=== PATIENT | female | born 1950 | race Caucasian/White ===

== ENCOUNTER 2022-03-26 09:35 | Outpatient (REF) | payer MEDICARE, SELFPAY ==
[2022-03-26 11:33] LABS: Hematocrit 38.8 % (37.0-47.0); Mean Corpuscular HGB Conc 33.5 g/dl (31.0-35.0); Mean Corpuscular Hemoglobin 30.7 pg (27.0-33.0); Mean Corpuscular Volume 91.7 fL (80.0-98.0); Mean Platelet Volume 9.6 fL (9.4-12.3); Platelet Count 388 X10*3/uL (160-400); Red Blood Count 4.23 X10*6/uL (4.20-5.50); Red Cell Distribution Width 13.2 % (11.0-16.0); White Blood Count 5.7 X10*3/uL (4.8-10.8)
[2022-03-26 11:56] LABS: Alanine Aminotransferase 15 U/L (0-31); Alkaline Phosphatase 87 U/L (39-117); Anion Gap 13 (12-20); Aspartate Amino Transferase 20 U/L (5-31); Bilirubin Total 0.8 mg/dL (0.0-1.0); Blood Urea Nitrogen 20 mg/dL (9-16); Calcium 9.8 mg/dL (8.4-10.2); Carbon Dioxide 28 mmol/L (22-29); Chloride 104 mmol/L (96-108); Cholesterol 222 mg/dL; Estimated Glomerular Filt Rate > 60; Glucose Fasting 108 mg/dL (60-99); HDL Cholesterol 64 mg/dL; LDL Cholesterol Calculated 146 mg/dl; Sodium 141 mmol/L (135-145); Total Protein 7.1 g/dL (6.5-8.0); Triglycerides 62 mg/dL
[2022-03-26 12:07] LABS: TSH reflex Free T4 1.12 uIU/mL (0.32-4.0)
== END 2022-03-26 09:36 | disposition home or self-care (01) ==
LOC: HO.WFDLDS 09:35
PROVIDERS: Visit Provider Hospitalist
DX: Z00.00 Encounter for general adult medical examination without abnormal findings (principal); I10 Essential (primary) hypertension
CPT/HCPCS: 36415; 80053; 80061; 84443; 85027

== ENCOUNTER 2022-04-10 08:52 | Outpatient (REF) | payer MEDICARE, SELFPAY ==
[2022-04-10 11:48] LABS: Hematocrit 39.8 % (37.0-47.0); Hemoglobin 13.1 g/dl (12.0-16.0); Mean Corpuscular HGB Conc 32.9 g/dl (31.0-35.0); Mean Corpuscular Volume 91.3 fL (80.0-98.0); Mean Platelet Volume 9.9 fL (9.4-12.3); Platelet Count 382 X10*3/uL (160-400); Red Blood Count 4.36 X10*6/uL (4.20-5.50); Red Cell Distribution Width 13.2 % (11.0-16.0); White Blood Count 5.3 X10*3/uL (4.8-10.8)
[2022-04-10 12:05] LABS: Alanine Aminotransferase 17 U/L (0-31); Albumin Level 4.1 g/dL (3.5-5.0); Alkaline Phosphatase 71 U/L (39-117); Anion Gap 12 (12-20); Aspartate Amino Transferase 23 U/L (5-31); Bilirubin Total 0.7 mg/dL (0.0-1.0); Blood Urea Nitrogen 23 mg/dL (9-16); Calcium 9.5 mg/dL (8.4-10.2); Carbon Dioxide 30 mmol/L (22-29); Chloride 104 mmol/L (96-108); Estimated Glomerular Filt Rate > 60; Glucose Fasting 98 mg/dL (60-99); Potassium 3.8 mmol/L (3.3-5.1); Sodium 142 mmol/L (135-145); Total Protein 7.2 g/dL (6.5-8.0)
[2022-04-10 12:20] LABS: TSH reflex Free T4 1.07 uIU/mL (0.32-4.0)
== END 2022-04-10 08:53 | disposition home or self-care (01) ==
LOC: HO.WFDLDS 08:52
PROVIDERS: Visit Provider Hospitalist
DX: Z00.00 Encounter for general adult medical examination without abnormal findings (principal)
CPT/HCPCS: 36415; 80053; 84443; 85027

== ENCOUNTER 2022-09-09 14:17 | Outpatient (REF) | payer MEDICARE, SELFPAY ==
[2022-09-09 15:06] LABS: Influenza A PCR NEGATIVE (Negative); Influenza B PCR NEGATIVE (Negative); Resp Syncy Virus RNA Qual PCR NEGATIVE (Negative); SARS COV2 PCR INHOUSE POSITIVE (Negative)
== END 2022-09-09 14:18 | disposition home or self-care (01) ==
LOC: HO.LNP 14:17
PROVIDERS: Visit Provider Nurse Practitioner Family
DX: Z20.822 Contact with and (suspected) exposure to COVID-19 (principal); J06.9 Acute upper respiratory infection, unspecified
CPT/HCPCS: 0241U

== ENCOUNTER 2023-10-22 08:41 | Outpatient (AMB) | payer MEDICARE, SELFPAY ==
--- NOTE | 2023-10-22 08:43 | A.OFFPC_ITS ---
Vital Signs 10/22/23 08:47 Height 5 ft Weight 171 lb 6 oz BMI 33.5 BP 160/70 H Blood Pressure Location Lt brachial Position Sitting Pulse 96 Pulse Source Pulse Oximeter Pulse Oximetry (%) 97 Oxygen Delivery Method Room Air Intake Visit Reasons: follow up med refill Intake Note: Patient is here to follow up on HTN, and med review. Fisher Dip Net Required: No Ballpoint Pen Cartridge Tester: Not Required per policy Accompanied by: Self / Same As Patient Allergies No Known Allergies Allergy (Verified 10/22/23 09:09) Medication List - Last Reconciled 10/22/23 by Iona Zamarripa, [employer]CHO[employer] MUSIC TEACHER- aspirin 325 mg PO DAILY atorvastatin 20 mg PO BEDTIME blood pressure monitor As directed lisinopril 2.5 mg PO DAILY lisinopril 5 mg PO DAILY sennosides (senna) 17.2 mg (2 x 8.6 mg) PO BEDTIME Tobacco use date assessed: 10/22/23 Fall risk assessment: No Falls in past year Last assessed Fall Risk: 10/22/23 Dental Screening Dental Screen Date: 10/22/23 Did you have a dental visit in the last 12 months?: Yes Did you have a dental problem in the last 6 months where you did not have access to dental care?: No Was dental information given to patient?: Patient has dentist HPI HPI Comments History of Present Illness Details Here today for f/u of HLD and HTN. Has been taking meds as directed. Due for labs. Last labs reviewed. Monitors BP at [facility] as she is not sure if home monitoring unit works. Several AM readings < 90 Denies any sx related to this. Edema in BLE, worse at HS. Cut bands off socks to reduce edema. Denies neuro and cardiac complaints. [facility] Surgical History (Updated 10/22/23 @ 09:00 by KASIE Mckeon) History of appendectomy History of laparoscopic cholecystectomy History of wisdom tooth extraction Social History (Updated 10/22/23 @ 09:00 by KASIE Mckeon) Housing: House Alcohol intake: current Alcohol intake frequency: holidays/special occasions only Patient Tobacco Use Status: Never used Tobacco e-Cigarette/Vaping Use: Never Used Second Hand Smoke Exposure: No service: No Current occupational status: other Current occupational exposures/hazards: No Cognitive needs: No Hearing needs: No Vision needs: Yes (glasses) Questionnaire PHQ-9 Over the last 2 weeks, how often have you been bothered by any of the following problems? 1. Little interest or pleasure in doing things: not at all 2. Feeling down, depressed, or hopeless: not at all 3. Trouble falling or staying asleep, or sleeping too much: not at all 4. Feeling tired or having little energy: not at all 5. Poor appetite or overeating: not at all 6. Feeling bad about yourself - or that you are a failure or have let yourself o r your family down: not at all 7. Trouble concentrating on things, such as reading the newspaper or watching television: not at all 8. Moving or speaking so slowly that other people could have noticed. Or the opposite - being so fidgety or restless that you have been moving around a lot more than usual: not at all 9. Thoughts that you would be better off or of hurting yourself in some way: not at all Total score: 0 Depression Screening Interpretation: Negative Depression Screening Done: Yes 64138 - PHQ-9 Billing: Yes Source: Developed by Drs. Gibran Salinas, Berta Corcoran, Abdullahi schwartz nd colleagues, with an educational edmund from [employer]. Thrive Questionnaire Date Thrive assessed: 10/22/23 I am a: Patient What is your living situation today?: I have a steady place to live Within the past 12 months, did the food you bought not last and you didn't have the money to get more?: Never true Within the past 12 months, did you worry whether your food would run out before you got money to buy more?: Never true Do you have trouble paying for medicines?: No Do you have trouble getting transportation to medical appointments?: No Do you have trouble paying your heating and electricity bill?: No Do you have trouble taking care of your child, family member or friend?: No Do you have trouble with day-to-day activities such as bathing, preparing meals, shopping, managing finances, etc.?: No Are you currently unemployed and looking for a job?: No Are you interested in more education?: No Please select the resources that you would like help with: None Currently or been in a relationship where the following occur: no concerns reported AUDIT C Alcohol Use Questionnaire (AUDIT-C) 1. How often do you have a drink containing alcohol?: Monthly or less 2. How many drinks containing alcohol do you have on a typical day when you are drinking?: 1 or 2 3. How often do you have six or more drinks on one occasion?: Never Total Score: 1 Score Reviewed/Action Taken: Yes NAIN-7 AMB Questionnaire NAIN-7 Date NAIN - 7 assessed: 10/22/23 Feeling nervous, anxious, or on edge: 0 = Not at all Not being able to stop or control worryin = Not at all Worrying too much about different things: 0 = Not at all Trouble relaxin = Not at all Being so restless that it is hard to sit still: 0 = Not at all Becoming easily annoyed or irritable: 0 = Not at all Feeling afraid as if something awful might happen: 0 = Not at all Total NAIN-7 score (0-4 normal; 5-9 mild; 10-14 moderate; 15-21 severe): 0 Source: Developed by Drs. Gibran Salinas, Berta Corcoran, Abdullahi Aragon and colleagues, with an educational edmund from [employer]. NAIN-7 Assessment Billing NAIN-7 Assessment Tool: NAIN-7 Assessment 54567 Review of Systems Const All systems reviewed & are unremarkable except as noted in HPI and below Physical exam (Primary Care) Vital Signs: Last Vital Signs Pulse 96 10/22/23 08:47 BP 160/70 H 10/22/23 08:47 Pulse Ox 97 10/22/23 08:47 Oxygen Delivery Method Room Air 10/22/23 08:47 BMI result Body Mass Index 33.5 Tobacco/Smoking Status: Tobacco use Status Tobacco use date assessed 10/22/23 10/22/23 08:47 Patient Tobacco Use Status Never used Tobacco 10/22/23 09:00 e-Cigarette/Vaping Use Never Used 10/22/23 09:00 PHQ-9: PHQ-9 Score PHQ-9: Total score 0 10/22/23 13:11 Depression Screening Interpretation: Negative Thrive Assessment: Date of Thrive Assessment Date Thrive assessed 10/22/23 10/22/23 09:01 Currently or been in a relationship where the following occur: no concerns reported Const Other: awake alert oriented nad MMM sclera & conjunctiva clear bilat LS dim BLL otherwise CTAB RRR BLE hairless, decreased PP bilat, feet cool to touch, nails thickened. Skin intact. Very trace edema bilat ankles R>L Anxious but pleasant and cooperative Assessment and Plan Assessment & Plan (1) Hyperlipidemia: Comment: on statin and ASA Code(s): E78.5 - Hyperlipidemia, unspecified Qualifiers: Hyperlipidemia type: mixed hyperlipidemia Qualified Code(s): E78.2 - Mixed hyperlipidemia Plan: check lipip profile & RTO to discuss and optimize (2) HTN, goal below 130/80: Code(s): I10 - Essential (primary) hypertension Plan: BP elevated in office, known white coat HTN. Home log reviewed w/ several readings in the AM SBP < 90 some even < 70. Denies syncope or sx. At this time, I have advised to reduce lisinopril from 7.5 mg QD to 5mg QD. Monitor BP QD at home and keep a log to review at next visit. Bring home BP cuff to next visit so we can teach you how to use it. Currently taking BP at [facility]. Check CMP & urine micro (3) PVD (peripheral vascular disease): Comment: on statin and ASA. Check Vascular studies Code(s): I73.9 - Peripheral vascular disease, unspecified (4) PAD (peripheral artery disease): Code(s): I73.9 - Peripheral vascular disease, unspecified (5) Peripheral edema: Code(s): R60.9 - Edema, unspecified Orders: Orders Lipid Panel 10/22/23 E78.5 - Hyperlipidemia, unspecified, I10 - Essential (primary) hypertension US IZA complete Today E78.5 - Hyperlipidemia, unspecified, I73.9 - Peripheral vascular disease, unspecified, R60.9 - Edema, unspecified Comprehensive [place]. Panel Fast 10/22/23 E78.5 - Hyperlipidemia, unspecified, I10 - Essential (primary) hypertension Microalbumin, Random (w Creat) 10/22/23 E78.5 - Hyperlipidemia, unspecified, I10 - Essential (primary) hypertension US arterial duplex LE BI Today E78.5 - Hyperlipidemia, unspecified, I73.9 - Peripheral vascular disease, unspecified, R60.9 - Edema, unspecified Medications: Refilled sennosides (senna) 17.2 mg (2 x 8.6 mg) PO BEDTIME 180 tabs 3RF lisinopril 5 mg PO DAILY 90 tabs 0RF I10 - Essential (primary) hypertension aspirin pt followed by ortho will continue asa just stopeed lovenox 325 mg PO DAILY 30 tabs 1RF lisinopril 2.5 mg PO DAILY 90 tabs 0RF I10 - Essential (primary) hypertension atorvastatin 20 mg PO BEDTIME 90 tabs 0RF E78.9 - Disorder of lipoprotein metabolism, unspecified Patient Instructions: [facility] Coding Level of Care Code Est Pt Level 4 (81425) Diagnoses Mixed hyperlipidemia E78.2 Hyperlipidemia type: mixed hyperlipidemia HTN, goal below 130/80 I10 PVD (peripheral vascular disease) I73.9 PAD (peripheral artery disease) I73.9 Peripheral edema R60.9 Additional Codes NAIN-7 Assessment Billing - NAIN-7 Assessment Tool: NAIN-7 Assessment [id number] ([id number])
[2023-10-22 08:47] VITALS: BP 160/70; PULSE 96; O2SAT 97; BMI 33.5
== END 2023-10-22 09:33 | disposition home or self-care (01) ==
PROVIDERS: PCP Hospitalist; Visit Provider Nurse Practitioner Family
DX: E78.2 Mixed hyperlipidemia (principal); I10 Essential (primary) hypertension; I73.9 Peripheral vascular disease, unspecified; R60.9 Edema, unspecified
CPT/HCPCS: 99214

== ENCOUNTER 2023-11-25 12:37 | Outpatient (AMB) | payer MEDICARE, SELFPAY ==
[2023-11-25 12:51] VITALS: BP 154/69; PULSE 94; RESP 13; TEMP 36.9; O2SAT 99; BMI 32.9
--- NOTE | 2023-11-25 12:51 | MHC.PC.OV ---
Vital Signs 11/25/23 12:51 Height 5 ft Weight 168 lb 8 oz BMI 32.9 BP 154/69 H Blood Pressure Location Lt brachial Position Sitting Respiration 13 Pulse 94 Pulse Source Pulse Oximeter Temp 98.4 F Temp Source Temporal Artery Scan Pulse Oximetry (%) 99 Oxygen Delivery Method Simple Mask Intake Visit Reasons: Transfer of care, f/u HTN, Lipids Labs Intake Note: Patient is here for transfer of care from to . Patient is also following up on hypertension. Patient reports she has no concerns at this time. Hardware Manager Required: No Accompanied by: Self / Same As Patient Allergies No Known Allergies Allergy (Verified 11/25/23 13:21) Medication List - Last Reconciled 11/25/23 by Iona Zamarripa, COLORECTAL SURGEON- aspirin 325 mg PO DAILY atorvastatin 20 mg PO BEDTIME blood pressure monitor As directed lisinopril 5 mg PO DAILY sennosides (senna) 17.2 mg (2 x 8.6 mg) PO BEDTIME Tobacco use date assessed: 11/25/23 Fall risk assessment: No Falls in past year Last assessed Fall Risk: 11/25/23 Dental Screening Dental Screen Date: 11/25/23 Did you have a dental visit in the last 12 months?: Yes Did you have a dental problem in the last 6 months where you did not have access to dental care?: No Was dental information given to patient?: Patient has dentist HPI HPI Comments History of Present Illness Details Here today to f/u on lipids and HTN Since last visit, has been taking BP at [facility]. Taking Lisinopril 5mg as directed (decrease from 7.5mg). Log much better. SBP range 96 - 114 DBP 45-75 P range 66-77 Was not able to get labs done as she reports need for antibiotic and dental work. Reports that the imaging was to be arranged at [facility] but she is still waiting on appointment date. [facility] Medical History (Updated 11/25/23 @ 13:02 by Jazmin Moura CMA) No pertinent past medical history Surgical History History of appendectomy History of laparoscopic cholecystectomy History of wisdom tooth extraction Social History (Updated 11/25/23 @ 13:04 by Jazmin Moura CMA) Household Members: Other Caregiver staying overnight: No Housing: House Are you a primary manager urgent care to a significant other at home: No Do you presently have visiting nurse or other home services: No 75 years or older and lives alone: No Alcohol intake: current Alcohol intake frequency: holidays/special occasions only Patient Tobacco Use Status: Never used Tobacco e-Cigarette/Vaping Use: Never Used Second Hand Smoke Exposure: No service: No Current occupational status: retired and other Current occupational exposures/hazards: No Sexual orientation: Unable to collect Gender identity: Unable to collect Cognitive needs: No Hearing needs: No Vision needs: Yes (glasses) Questionnaire PHQ-9 Over the last 2 weeks, how often have you been bothered by any of the following problems? 1. Little interest or pleasure in doing things: not at all 2. Feeling down, depressed, or hopeless: not at all 3. Trouble falling or staying asleep, or sleeping too much: not at all 4. Feeling tired or having little energy: not at all 5. Poor appetite or overeating: not at all 6. Feeling bad about yourself - or that you are a failure or have let yourself or your family down: not at all 7. Trouble concentrating on things, such as reading the newspaper or watching television: not at all 8. Moving or speaking so slowly that other people could have noticed. Or the opposite - being so fidgety or restless that you have been moving around a lot more than usual: not at all 9. Thoughts that you would be better off or of hurting yourself in some way: not at all Total score: 0 Depression Screening Interpretation: Negative Depression Screening Done: Yes 23105 - PHQ-9 Billing: Yes Source: Developed by Drs. Gibran Salinas, Berta Corcoran, Abdullahi Aragon and colleagues, with an educational edmund from [employer]. Thrive Questionnaire Date Thrive assessed: 11/25/23 I am a: Patient What is your living situation today?: I have a steady place to live Within the past 12 months, did the food you bought not last and you didn't have the money to get more?: Never true Within the past 12 months, did you worry whether your food would run out before you got money to buy more?: Never true Do you have trouble paying for medicines?: No Do you have trouble getting transportation to medical appointments?: No Do you have trouble paying your heating and electricity bill?: No Do you have trouble taking care of your child, family member or friend?: No Do you have trouble with day-to-day activities such as bathing, preparing meals, shopping, managing finances, etc.?: No Are you currently unemployed and looking for a job?: No Are you interested in more education?: No Please select the resources that you would like help with: None Currently or been in a relationship where the following occur: no concerns reported THRIVE Score: 0 AUDIT C Alcohol Use Questionnaire (AUDIT-C) 1. How often do you have a drink containing alcohol?: Monthly or less 2. How many drinks containing alcohol do you have on a typical day when you are drinking?: 1 or 2 3. How often do you have six or more drinks on one occasion?: Never Total Score: 1 NAIN-7 AMB Questionnaire NAIN-7 Date NAIN - 7 assessed: 11/25/23 Feeling nervous, anxious, or on edge: 0 = Not at all Not being able to stop or control worryin = Not at all Worrying too much about different things: 0 = Not at all Trouble relaxin = Not at all Being so restless that it is hard to sit still: 0 = Not at all Becoming easily annoyed or irritable: 0 = Not at all Feeling afraid as if something awful might happen: 0 = Not at all Total NAIN-7 score (0-4 normal; 5-9 mild; 10-14 moderate; 15-21 severe): 0 Source: Developed by Drs. Gibran Salinas, Berta Corcoran, Abdullahi Aragon and colleagues, with an educational edmund from [employer]. NAIN-7 Assessment Billing NAIN-7 Assessment Tool: NAIN-7 Assessment 41685 Review of Systems Const All systems reviewed & are unremarkable except as noted in HPI and below Physical exam (Primary Care) Vital Signs: Last Vital Signs Temp 98.4 F 11/25/23 12:51 Pulse 94 11/25/23 12:51 Resp 13 11/25/23 12:51 BP 154/69 H 11/25/23 12:51 Pulse Ox 99 11/25/23 12:51 Oxygen Delivery Method Simple Mask 11/25/23 12:51 BMI result Body Mass Index 32.9 Tobacco/Smoking Status: Tobacco use Status Tobacco use date assessed 11/25/23 11/25/23 13:04 Patient Tobacco Use Status Never used Tobacco 11/25/23 13:04 e-Cigarette/Vaping Use Never Used 11/25/23 13:04 PHQ-9: PHQ-9 Score PHQ-9: Total score 0 11/25/23 13:27 Depression Screening Interpretation: Negative Thrive Assessment: Date of Thrive Assessment Date Thrive assessed 11/25/23 11/25/23 13:06 Currently or been in a relationship where the following occur: no concerns reported Const Other: wake alert oriented nad MMM sclera & conjunctiva clear bilat LS dim BLL otherwise CTAB RRR BLE hairless, decreased PP bilat, feet cool to touch, nails thickened. Skin intact. Very trace edema bilat ankles R>L Anxious but pleasant and cooperative Assessment and Plan Assessment & Plan (1) PVD (peripheral vascular disease): Comment: on statin and ASA. Check Vascular studies Code(s): I73.9 - Peripheral vascular disease, unspecified (2) Hyperlipidemia: Comment: on statin and ASA Code(s): E78.5 - Hyperlipidemia, unspecified Qualifiers: Hyperlipidemia type: mixed hyperlipidemia Qualified Code(s): E78.2 - Mixed hyperlipidemia (3) HTN, goal below 130/80: Code(s): I10 - Essential (primary) hypertension (4) Peripheral edema: Code(s): R60.9 - Edema, unspecified Plan: Blood pressure in office today remains above goal, however her home log reviews blood pressures that are well within goal with the reduction of lisinopril from 7.5 mg to 5 mg per day. I have advised her to continue to take this as prescribed and to continue to monitor her blood pressure daily and bring logs with her to future appointments. The elevated blood pressure in the office today is due to white coat hypertension which is a known condition for her. When she gets her blood work done and her vascular studies done I have asked her to schedule an appointment so that we may review this and come up with a plan. I have advised her to return to the office in 3 months for a routine appointment in addition to the appointment needed to review her testing and labs. Total time spent caring for the patient today was 40 minutes. This includes time spent before the visit reviewing the chart, time spent during the visit, and time spent after the visit on documentation Coding Level of Care Code Est Pt Level 4 (24248) Diagnoses PVD (peripheral vascular disease) I73.9 Mixed hyperlipidemia E78.2 Hyperlipidemia type: mixed hyperlipidemia HTN, goal below 130/80 I10 Peripheral edema R60.9 Additional Codes NAIN-7 Assessment Billing - NAIN-7 Assessment Tool: NAIN-7 Assessment [id number] ([id number])
== END 2023-11-25 13:36 | disposition home or self-care (01) ==
PROVIDERS: PCP Hospitalist; Visit Provider Nurse Practitioner Family
DX: I73.9 Peripheral vascular disease, unspecified (principal); E78.2 Mixed hyperlipidemia; I10 Essential (primary) hypertension; R60.9 Edema, unspecified
CPT/HCPCS: 99214

== ENCOUNTER 2023-12-18 09:13 | Outpatient (REF) | payer MEDICARE, SELFPAY ==
--- NOTE | ~2023-12-18 | US_ITS ---
EXAMINATION: US arterial duplex LE BI, US IZA complete CLINICAL INFORMATION: Peripheral vascular disease, unspecified COMPARISON: None TECHNIQUE: Ankle pulse volume recordings, ankle pressure measurements and ankle brachial indices were obtained of the lower extremity arterial system bilaterally in addition to duplex Doppler techniques with wave form analysis and measurement of velocities in the common femoral, profunda femoral, superficial femoral, popliteal, tibial and peroneal arteries. The study was performed only at rest. FINDINGS: RIGHT LE. THE RIGHT ANKLE-BRACHIAL INDEX IS: 0.97 noncompressibility/calcification. >0.97-1.25 = normal - no significant arterial disease 0.75-0.96 = mild peripheral arterial disease 0.5-0.74 = moderate peripheral arterial disease <0.50 = severe peripheral arterial disease <0.30 = critical arterial disease 2. SEGMENTAL PRESSURES (mmHg): Ankle: PT 167, DP 159 3. PVR WAVEFORMS: Ankle: Abnormal 4. DIRECT DUPLEX: Common femoral artery: 229 cm/s, Multiphasic Profunda femoris artery: 201 cm/s, monophasic Superficial femoral artery (proximal): 152 cm/s, Multiphasic Superficial femoral artery (mid): 117 cm/s, Multiphasic Superficial femoral artery (distal): 74.8 cm/s, biphasic Proximal Popliteal artery: 100 cm/s, biphasic Distal popliteal artery: 348 cm/s, biphasic Mid posterior tibial artery: 98.8 cm/s, Multiphasic Peroneal artery: 56 cm/s, biphasic Anterior tibial artery: 23.8 cm/sec. Reversed flow LEFT LE. THE LEFT ANKLE-BRACHIAL INDEX IS: 0.85 (higher of the DP/PT) >0.97-1.25 = normal - no significant arterial disease 0.75-0.96 = mild peripheral arterial disease 0.5-0.74 = moderate peripheral arterial disease <0.50 = severe peripheral arterial disease <0.30 = critical arterial disease 2. SEGMENTAL PRESSURES: Ankle: PT 147, DP 128 3. PVR WAVEFORMS: Ankle: Abnormal 4. DIRECT DUPLEX: Common femoral artery: 118 cm/s, Multiphasic Profunda femoris artery: 127 cm/s, monophasic Superficial femoral artery (proximal): 87.4 cm/s, Multiphasic Superficial femoral artery (mid): 90 cm/s, biphasic Superficial femoral artery (distal): 88 cm/s, biphasic Proximal Popliteal artery: 86.1 cm/s, biphasic Distal popliteal artery: 93.1 cm/s, biphasic Mid posterior tibial artery: 104 cm/s, biphasic Peroneal artery: 157 cm/s, monophasic Anterior tibial artery: 14.4 cm/sec, monophasic US/US arterial duplex LE BI IMPRESSION: RIGHT LEG: IZA 0.97, borderline normal. Elevated velocity in the distal popliteal artery suggesting moderate to severe stenosis. LEFT LEG: Mild peripheral arterial disease by IZA criteria.
== END 2023-12-18 09:14 | disposition home or self-care (01) ==
LOC: HO.US 09:13
PROVIDERS: PCP Nurse Practitioner Family; Visit Provider Nurse Practitioner Family
DX: I73.9 Peripheral vascular disease, unspecified (principal); E78.5 Hyperlipidemia, unspecified; R60.9 Edema, unspecified
CPT/HCPCS: 93923; 93925

== ENCOUNTER 2023-12-25 07:45 | Outpatient (REF) | payer MEDICARE, SELFPAY ==
[2023-12-25 11:48] LABS: Alanine Aminotransferase 16 U/L (0-31); Albumin Level 4.2 g/dL (3.5-5.0); Alkaline Phosphatase 77 U/L (39-117); Anion Gap 15 (12-20); Aspartate Amino Transferase 26 U/L (5-31); Bilirubin Total 0.7 mg/dL (0.0-1.0); Blood Urea Nitrogen 25 mg/dL (9-16); Calcium 10.1 mg/dL (8.4-10.2); Carbon Dioxide 28 mmol/L (22-29); Chloride 104 mmol/L (96-108); Cholesterol 151 mg/dL (<200); Estimated Glomerular Filt Rate > 60; Glucose Fasting 110 mg/dL (60-99); HDL Cholesterol 62 mg/dL (>40); LDL Cholesterol Calculated 76 mg/dL (<100); Potassium 3.7 mmol/L (3.3-5.1); Sodium 143 mmol/L (135-145); Total Protein 7.6 g/dL (6.5-8.0); Triglycerides 65 mg/dL (<150)
[2023-12-25 12:15] LABS: Creatinine Urine 120.34 mg/dL; Microalbum/Creatinine Ratio Ur 50.6 ug/mg cr (<30)
== END 2023-12-25 07:46 | disposition home or self-care (01) ==
LOC: HO.WFDLDS 07:45
PROVIDERS: Visit Provider Nurse Practitioner Family
DX: E78.5 Hyperlipidemia, unspecified (principal); I10 Essential (primary) hypertension
CPT/HCPCS: 36415; 80053; 80061; 82043; 82570

== ENCOUNTER 2023-12-30 11:44 | Outpatient (AMB) | payer MEDICARE, SELFPAY ==
[2023-12-30 11:49] VITALS: BP 170/74; PULSE 88; RESP 13; TEMP 36.9; O2SAT 100; BMI 31.2
--- NOTE | 2023-12-30 11:49 | A.OFFPC_ITS ---
Vital Signs 12/30/23 11:49 12/30/23 13:08 Height 5 ft Weight 160 lb BMI 31.2 BP 170/74 H 138/62 Blood Pressure Location Lt brachial Lt brachial Position Sitting Sitting Respiration 13 Pulse 88 Pulse Source Pulse Oximeter Temp 98.4 F Temp Source Temporal Artery Scan Pulse Oximetry (%) 100 Oxygen Delivery Method Room Air Intake Visit Reasons: fu HTN Lipids Vascular study Intake Note: Patient reports she is following up on her recent tests. 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 by: Self / Same As Patient Allergies No Known Allergies Allergy (Verified 12/30/23 12:44) Medication List - Last Reconciled 12/30/23 by JAMA Kaur aspirin 325 mg PO DAILY atorvastatin 20 mg PO BEDTIME blood pressure monitor As directed lisinopril 5 mg PO DAILY sennosides (senna) 17.2 mg (2 x 8.6 mg) PO BEDTIME Tobacco use date assessed: 11/25/23 HPI HPI Comments History of Present Illness Details 73-year-old female with PVD, hyperlipide alexys, hypertension, osteoarthritis, IFG, cataracts Status post appendectomy, laparoscopic cholecystectomy Health maintenance Mammogram [facility] Here today to follow-up on htn, lab results as well as IZA testing done to perform edema bilateral lower extremities worse on the right. Abnormal IZA: 12/2023 RLE: IZA 0.97, borderline normal. Elevated velocity in the distal popliteal artery suggesting moderate to severe stenosis. LEFT LEG: Mild peripheral arterial disease by IZA criteria. Labs from 12/25/2023 show a BUN of 25, creatinine 0.83, normal GFR, fasting glucose of 110, normal cholesterol, positive microalbumin 50.6 Home log reviewed SBP range 70-110 DBP 59. This is on lisinopril 5 mg daily. She denies any syncope or presyncope symptoms associated with the low blood pressure. Denies orthostasis. Fluid intake reviewed with her reports that she drinks at least 6 glasses of water. Admits staying hydrated is difficult but she does her best. Cataracts reports that she needs a referral to Dr. Martinez in [place] for management of her cataracts. Reports that they are getting worse. They are bilateral. [facility] Medical History (Updated 12/31/23 @ 07:31 by JAMA Kaur) Glenoid fracture of shoulder No pertinent past medical history Surgical History History of appendectomy History of laparoscopic cholecystectomy History of wisdom tooth extraction Social History (Updated 11/25/23 @ 13:04 by Jazmin Moura CMA) Household Members: Other Caregiver staying overnight: No Housing: House Are you a primary adult caregiver to a significant other at home: No Do you presently have visiting nurse or other home services: No 75 years or older and lives alone: No Alcohol intake: current Alcohol intake frequency: holidays/special occasions only Patient Tobacco Use Status: Never used Tobacco e-Cigarette/Vaping Use: Never Used Second Hand Smoke Exposure: No service: No Current occupational status: retired and other Current occupational exposures/hazards: No Sexual orientation: Unable to collect Gender identity: Unable to collect Cognitive needs: No Hearing needs: No Vision needs: Yes (glasses) Questionnaire PHQ-9 Over the last 2 weeks, how often have you been bothered by any of the following problems? Depression Screening Interpretation: Negative Depression Screening Done: Yes Source: Developed by Drs. Gibran Salinas, Abdullahi Perry and colleagues, with an educational edmund from [employer]. Thrive Questionnaire Date Thrive assessed: 11/25/23 Currently or been in a relationship where the following occur: no concerns reported THRIVE Score: 0 NAIN-7 AMB Questionnaire NAIN-7 Date NAIN - 7 assessed: 11/25/23 Source: Developed by Drs. Gibran Salinas, Berat Corcoran, Abdullahi Aragon and colleagues, with an educational edmund from [employer]. Review of Systems Const All systems reviewed & are unremarkable except as noted in HPI and below Physical exam (Primary Care) Vital Signs: Last Vital Signs Temp 98.4 F 12/30/23 11:49 Pulse 88 12/30/23 11:49 Resp 13 12/30/23 11:49 BP 138/62 12/30/23 13:08 Pulse Ox 100 12/30/23 11:49 Oxygen Delivery Method Room Air 12/30/23 11:49 BMI result Body Mass Index 31.2 Tobacco/Smoking Status: Tobacco use Status Tobacco use date assessed 11/25/23 12/30/23 11:58 Patient Tobacco Use Status Never used Tobacco 12/30/23 11:58 e-Cigarette/Vaping Use Never Used 12/30/23 11:58 Depression Screening Interpretation: Negative Thrive Assessment: Date of Thrive Assessment Date Thrive assessed 11/25/23 12/30/23 11:58 Currently or been in a relationship where the following occur: no concerns repor kiersten Const Other: wake alert oriented nad MMM sclera & conjunctiva clear bilat LS dim BLL otherwise CTAB RRR BLE hairless, decreased PP bilat, feet cool to touch, nails thickened. Skin intact. Very trace edema bilat ankles R>L Anxious but pleasant and cooperative Assessment and Plan Assessment & Plan (1) PVD (peripheral vascular disease): Comment: on statin and ASA. Abnormal IZA: 12/2023 RLE: IZA 0.97, borderline normal. Elevated velocity in the distal popliteal artery suggesting moderate to severe stenosis. LEFT LEG: Mild peripheral arterial disease by IZA criteria. Referred to Dr Melgoza Code(s): I73.9 - Peripheral vascular disease, unspecified (2) Hyperlipidemia: Comment: on statin and ASA, December 2023 labs show LDL at goal 76. Continue atorvastatin 20 mg daily Code(s): E78.5 - Hyperlipidemia, unspecified Qualifiers: Hyperlipidemia type: mixed hyperlipidemia Qualified Code(s): E78.2 - Mixed hyperlipidemia (3) HTN, goal below 130/80: Comment: BP cont to be lower than goal, plan: decrease lisinopril from 5mg to 2.5mg QD. Cont to monitor BP at home and bring log to review at future visits. Code(s): I10 - Essential (primary) hypertension (4) Microalbuminuria: Comment: on ACEI. Encouraged hydration. Labs from December of 2023 show microalbumin 50.6, BUN 25, creatinine 0.83, GFR within normal limits. We will need to continue to monitor. Code(s): R80.9 - Proteinuria, unspecified (5) Impaired fasting glucose: Comment: Fasting glucose December of 2023 is 110. Education provided today. We will c heck a hemoglobin A1c in 3 months to evaluate further. Code(s): R73.01 - Impaired fasting glucose (6) Popliteal artery stenosis, right: Comment: l IZA: 12/2023 RLE: IZA 0.97, borderline normal. Elevated velocity in the distal popliteal artery suggesting moderate to severe stenosis. LEFT LEG: Mild peripheral arterial disease by IZA criteria. Referred to Dr. Melgoza Code(s): I70.201 - Unspecified atherosclerosis of [place] arteries of extremities, right leg (7) Cataracts, bilateral: Comment: Refer to Dr. martinez in [place] for further evaluation and treatment Code(s): H26.9 - Unspecified cataract Qualifiers: Cataract type: age-related Age-related cataract type: nuclear Qualified Code(s): H25.13 - Age-related nuclear cataract, bilateral Plan This note is constructed using voice recognition software. While every effort has been made to ensure accuracy in therapy coordinator, still errors may have been included Sometimes, these errors may affect the content or meaning of the given sentence . Total time spent caring for the patient today was 50 minutes. This includes time spent before the visit reviewing the chart, time spent during the visit, and time spent after the visit on documentation Orders: Orders Microalbumin, Random (w Creat) 3 Months R73.01 - Impaired fasting glucose, R80.9 - Proteinuria, unspecified Comprehensive Met. Panel 3 Months R73.01 - Impaired fasting glucose, R80.9 - Proteinuria, unspecified Hemoglobin A1c 3 Months R73.01 - Impaired fasting glucose, R80.9 - Proteinuria, unspecified Referrals Vascular Surgery Referral I70.201 - Unspecified atherosclerosis of [place] arteries of extremities, right leg, I73.9 - Peripheral vascular disease, unspecified Ophthalmology Referral H26.9 - Unspecified cataract Medications: Changed From lisinopril 5 mg PO DAILY 90 tabs 0RF I10 - Essential (primary) hypertension To lisinopril 2.5 mg (1/2 x 5 mg) PO DAILY 90 tabs 0RF I10 - Essential (primary) hypertension Refilled atorvastatin 20 mg PO BEDTIME 90 tabs 0RF E78.9 - Disorder of lipoprotein metabolism, unspecified Coding Level of Care Code Est Pt Level 5 (95811) Diagnoses PVD (peripheral vascular disease) I73.9 Mixed hyperlipidemia E78.2 Hyperlipidemia type: mixed hyperlipidemia HTN, goal below 130/80 I10 Microalbuminuria R80.9 Impaired fasting glucose R73.01 Popliteal artery stenosis, right I70.201 Age-related nuclear cataract of both eyes H25.13 Cataract type: age-related Age-related cataract type: nuclear
[2023-12-30 13:08] VITALS: BP 138/62
== END 2023-12-30 13:15 | disposition home or self-care (01) ==
PROVIDERS: PCP Nurse Practitioner Family; Visit Provider Nurse Practitioner Family
DX: I70.201 Unspecified atherosclerosis of native arteries of extremities, right leg (principal); E78.2 Mixed hyperlipidemia; I10 Essential (primary) hypertension; R80.9 Proteinuria, unspecified; R73.01 Impaired fasting glucose; H25.13 Age-related nuclear cataract, bilateral
CPT/HCPCS: 99215

== ENCOUNTER 2024-02-03 13:27 | Outpatient (AMB) | payer MEDICARE, SELFPAY ==
[2024-02-03 13:29] VITALS: BMI 31.2
--- NOTE | 2024-02-03 13:29 | MHC.OFFVIS ---
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 She has more so back in lateral thigh pain. She does have a childhood history of severe scoliosis. She does have back pain issues on occasion. She now presents for follow-up with noninvasive arterial testing [facility] Medical History Glenoid fracture of shoulder No pertinent past medical history Surgical History History of appendectomy History of laparoscopic cholecystectomy History of wisdom tooth extraction Social History Household Members: Other Caregiver staying overnight: No Housing: House Are you a primary skin care instructor to a significant other at home: No Do you presently have visiting nurse or other home services: No 75 years or older and lives alone: No Alcohol intake: current Alcohol intake frequency: holidays/special occasions only Patient Tobacco Use Status: Never used Tobacco e-Cigarette/Vaping Use: Never Used Second Hand Smoke Exposure: No service: No Current occupational status: retired and other Current occupational exposures/hazards: No Sexual orientation: Unable to collect Gender identity: Unable to collect Cognitive needs: No Hearing needs: No Vision needs: Yes (glasses) Review of Systems Const All systems reviewed & are unremarkable except as noted in HPI and below Reports no additional complaints ENT Reports Normal hearing present Card Denies chest pain, Denies chest pain at rest, Denies chest pain with activity and Denies pedal edema Resp Denies cough GI Denies abdominal pain Musc Denies abnormal gait, Denies muscle cramps and Denies radiating pain into limb Skin/Breast Denies skin ulcer and Denies wounds Neuro Reports Normal hearing present and Denies abnormal gait Psych Reports no additional complaints Physical Exam Vital Signs: BMI result Body Mass Index 31.2 Const General: cooperative, healthy appearing and comfortable Orientation/consciousness: oriented to person, oriented to place and oriented to time HEENT Head: Yes normal to inspection Neck Neck: Yes normal visual inspection Carotids: no bruits Chest Chest palpation & inspection: normal inspection of the chest Resp Effort & Inspection: normal respiratory effort and able to speak in complete sentences Auscultation: clear to auscultation bilaterally, no crackles, no rales, no rhonchi and no wheezes Cardio Other: Palpable bilateral DP and PT pulse Rate: regular rate Rhythm: regular rhythm Heart sounds: S1 normal heart sound present and S2 normal heart sound present Bruits: no carotid bruits Peripheral pulses: Peripheral pulses 2+ throughout GI Inspection: Yes normal to inspection Skin Wounds: no wounds Hair: normal Neuro General: oriented to person, oriented to place and oriented to time Cranial nerves: Yes CN's II-XII intact bilaterally and Yes Normal hearing present Cognition (Neuro): normal cognition Motor exam (neuro): 5/5 motor strength present throughout Extrem Other: venous exam: No significant superficial varicosities or spider telangiectasias, minimal edema General: No clubbing, No cyanosis and No edema Psych Appearance: grossly normal Mental Status: mental status grossly normal Speech and movement: Normal speech and movement present Results Reviewed Results Reviewed: Noninvasive arterial testing dated 12/18/2023 demonstrates IZA on the right of 0.97 and on the left 0.85. Written report and images were reviewed. Assessment & Plan Assessment & Plan (1) PAD (peripheral artery disease): Code(s): I73.9 - Peripheral vascular disease, unspecified Plan: In short patient has stable arterial disease. I do not believe that the popliteal artery stenosis is significant as I do have palpable pulses. I do believe that most of her pain may be more neurologic in nature. We did discuss these findings and she will follow up with us on an as-needed basis. She may benefit from a neurologic evaluation and or back spine evaluation. Thank you for allowing us to assist in her care. If there are any questions or concerns please do not hesitate to contact us. Coding Level of Care Code Est Pt Level 4 (43187) Diagnoses PAD (peripheral artery disease) I73.9
== END 2024-02-03 14:34 | disposition home or self-care (01) ==
PROVIDERS: PCP Nurse Practitioner Family; Visit Provider Surgery Vascular Surgery
DX: I73.9 Peripheral vascular disease, unspecified (principal)
CPT/HCPCS: 99213

== ENCOUNTER → 2024-02-03 13:27 | Outpatient (BNVA) | payer MEDICARE, SELFPAY | PROVIDERS: PCP Nurse Practitioner Family; Visit Provider Surgery Vascular Surgery | DX: I73.9 Peripheral vascular disease, unspecified (principal) | CPT/HCPCS: 99212 ==

== ENCOUNTER 2024-03-04 10:45 | Outpatient (AMB) | payer MEDICARE, SELFPAY ==
[2024-03-04 11:11] VITALS: BP 156/78; PULSE 109; RESP 14; TEMP 36.4; O2SAT 99; BMI 30.1
--- NOTE | 2024-03-04 11:11 | MHC.PC.OV ---
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 Accompanied by: Self / Same As Patient Allergies No Known Allergies Allergy (Verified 03/04/24 11:49) Medication List - Last Reconciled 03/04/24 by Iona Zamarripa, ICE CUTTER- aspirin 325 mg PO DAILY atorvastatin 20 mg PO BEDTIME blood pressure monitor As directed lisinopril 2.5 mg (1/2 x 5 mg) PO DAILY sennosides (senna) 17.2 mg (2 x 8.6 mg) PO BEDTIME Tobacco use date assessed: 11/25/23 Fall risk assessment: No Falls in past year Last assessed Fall Risk: 03/04/24 Dental Screening Dental Screen Date: 03/04/24 Did you have a dental visit in the last 12 months?: Yes Did you have a dental problem in the last 6 months where you did not have access to dental care?: No Was dental information given to patient?: Patient has dentist HPI HPI Comments History of Present Illness Details 3-year-old female with PVD, hyperlipidemia, hypertension, osteoarthritis, IFG, cataracts Status post appendectomy, laparoscopic cholecystectomy 89, wisdom teeth 77, left ovary 1978 Health maintenance Mammogram Colonoscopy [facility] HERE TODAY FOR PREOPERATIVE CLEARANCE. SURGERY TYPE: CATARACT EXTRACTION WITH INTRA-OCULAR LENS IMPLANTS ANESTHESIA TYPE: NONE SURGEON: DR WALDO JOAQUIN DATE: 1ST SURGERY 03/08/2020 Left 2ND SURGERY 03/22/2024 Right ANY PAST SURGICAL PROCEDURES: appendectomy, laparoscopic cholecystectomy, left ovary, wisdom teeth ANY COMPLICATIONS FROM ANESTHESIA OR IN POST-OP PERIOD: Reports after cindy, had lots of n/v otherwise no complications ASA OR NSAID USE: daily ASA 325 mg CURRENT SMOKER: Denies ALCOHOL USE: Rare use DRUG USE: Denies METS: > 4 CLIMB FLIGHT OF STAIRS, GOLF, WALK, YARDWORK MEDICAL HISTORY: ASTHMA No COPD No OBESITY BMI 30.1 DIABETES No RCRI IS CLASS 1 RISK STRATIFICATION: low PFSH Medical History Glenoid fracture of shoulder No pertinent past medical history Surgical History History of appendectomy History of laparoscopic cholecystectomy History of wisdom tooth extraction Social History Household Members: Other Caregiver staying overnight: No Housing: Apartment Are you a primary animal care specialist to a significant other at home: No Do you presently have visiting nurse or other home services: No 75 years or older and lives alone: No Alcohol intake: current Alcohol intake frequency: holidays/special occasions only Patient Tobacco Use Status: Never used Tobacco e-Cigarette/Vaping Use: Never Used Second Hand Smoke Exposure: No service: No Current occupational status: retired and other Current occupational exposures/hazards: No Sexual orientation: Unable to collect Gender identity: Unable to collect Cognitive needs: No Hearing needs: No Vision needs: Yes (glasses) Questionnaire Thrive Questionnaire Date Thrive assessed: 11/25/23 NAIN-7 AMB Questionnaire NAIN-7 Date NAIN - 7 assessed: 11/25/23 Source: Developed by Drs. Gibran Salinas, Berta Corcoran, Abdullahi Aragon and colleagues, with an educational edmund from [employer]. Review of Systems Const All systems reviewed & are unremarkable except as noted in HPI and below Physical exam (Primary Care) Vital Signs: Last Vital Signs Temp 97.5 F 03/04/24 11:11 Pulse 70 03/04/24 11:57 Resp 14 03/04/24 11:11 BP 132/74 03/04/24 11:57 Pulse Ox 99 03/04/24 11:11 Oxygen Delivery Method Room Air 03/04/24 11:11 BMI result Body Mass Index 30.1 Tobacco/Smoking Status: Tobacco use Status Tobacco use date assessed 11/25/23 03/04/24 11:13 Patient Tobacco Use Status Never used Tobacco 03/04/24 11:13 e-Cigarette/Vaping Use Never Used 03/04/24 11:13 Thrive Assessment: Date of Thrive Assessment Date Thrive assessed 11/25/23 03/04/24 11:13 Const Other: wake alert oriented nad MMM sclera & conjunctiva clear bilat LS dim BLL otherwise CTAB RRR BLE hairless, decreased PP bilat, feet cool to touch, nails thickened. Skin intact. Very trace edema bilat ankles R>L Anxious but pleasant and cooperative Office Procedures EKG [id number], Complete Assessment and Plan Assessment & Plan (1) Preop cardiovascular exam: Comment: Medically cleared for surgery, low and acceptable risk. EKG normal sinus rhythm, normal CMP done today. Code(s): Z01.810 - Encounter for preprocedural cardiovascular examination (2) Cataracts, bilateral: Comment: Refer to Dr. joaquin in [place] for further evaluation and treatment Code(s): H26.9 - Unspecified cataract Qualifiers: Age-related cataract type: nuclear Cataract type: age-related Qualified Code(s): H25.13 - Age-related nuclear cataract, bilateral Orders: Orders AMB EKG-In Office Today Z01.810 - Encounter for preprocedural cardiovascular examination Comprehensive Met. Panel Today H25.13 - Age-related nuclear cataract, bilateral Medications: Refilled atorvastatin 20 mg PO BEDTIME 90 tabs 0RF E78.9 - Disorder of lipoprotein metabolism, unspecified lisinopril 2.5 mg (1/2 x 5 mg) PO DAILY 90 tabs 0RF I10 - Essential (primary) hypertension Patient Instructions: EDUCATION ASPIRIN AND NSAIDS SHOULD BE DISCONTINUED ONE WEEK BEFORE SURGERY TO PREVENT EXCESSIVE BLEEDING. IF YOU ARE A SMOKER, THERE IS INCREASE RISK OF POST SURGICAL COMPLICATIONS. CESSATION IS ENCOURAGED. FOLLOW UP WITH SURGEON AND ALL RECOMMENDATIONS PRE AND POST OPERATIVELY. Coding Level of Care Code Est Pt Level 4 (82367) Complex EM visit Add On G2211 Diagnoses Preop cardiovascular exam Z01.810 Age-related nuclear cataract of both eyes H25.13 Age-related cataract type: nuclear Cataract type: age-related CPT Codes EKG - CPT: [id number], Complete ([id number])
[2024-03-04 11:57] VITALS: BP 132/74; PULSE 70
== END 2024-03-04 12:37 | disposition home or self-care (01) ==
PROVIDERS: PCP Nurse Practitioner Family; Visit Provider Nurse Practitioner Family
DX: Z01.810 Encounter for preprocedural cardiovascular examination (principal); H25.13 Age-related nuclear cataract, bilateral
CPT/HCPCS: 93000; 99214; G2211

== ENCOUNTER 2024-03-04 12:01 | Outpatient (REF) | payer MEDICARE, SELFPAY ==
[2024-03-04 14:21] LABS: Estimated Average Glucose 111 mg/dL; Hemoglobin A1c % 5.5 % (<6.0)
[2024-03-04 14:49] LABS: Alanine Aminotransferase 18 U/L (0-31); Alkaline Phosphatase 76 U/L (39-117); Anion Gap 13 (12-20); Aspartate Amino Transferase 26 U/L (5-31); Bilirubin Total 0.6 mg/dL (0.0-1.0); Blood Urea Nitrogen 23 mg/dL (9-16); Calcium 10.3 mg/dL (8.4-10.2); Carbon Dioxide 28 mmol/L (22-29); Chloride 105 mmol/L (96-108); Estimated Glomerular Filt Rate > 60; Glucose Random 106 mg/dL (60-115); Potassium 3.9 mmol/L (3.3-5.1); Sodium 142 mmol/L (135-145); Total Protein 7.6 g/dL (6.5-8.0)
== END 2024-03-04 12:02 | disposition home or self-care (01) ==
LOC: HO.WFDLDS 12:01
PROVIDERS: Visit Provider Nurse Practitioner Family
DX: H25.13 Age-related nuclear cataract, bilateral (principal); R80.9 Proteinuria, unspecified; R73.01 Impaired fasting glucose
CPT/HCPCS: 36415; 80053; 83036

== ENCOUNTER 2024-05-04 09:45 | Outpatient (AMB) | payer MEDICARE, SELFPAY ==
[2024-05-04 09:49] VITALS: BP 148/70; PULSE 92; RESP 14; TEMP 36.5; O2SAT 98; BMI 29.9
--- NOTE | 2024-05-04 09:49 | A.OFFPC_ITS ---
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[place] [employer] Required: No Accompanied by: Self / Same As Patient Allergies No Known Allergies Allergy (Verified 05/04/24 10:05) Medication List - Last Reconciled 05/04/24 by Iona Zamarripa, EGG BREAKER- aspirin 325 mg PO DAILY atorvastatin 20 mg PO BEDTIME blood pressure monitor As directed lisinopril 2.5 mg (1/2 x 5 mg) PO DAILY sennosides (senna) 17.2 mg (2 x 8.6 mg) PO BEDTIME Tobacco use date assessed: 11/25/23 Fall risk assessment: No Falls in past year Last assessed Fall Risk: 05/04/24 Dental Screening Dental Screen Date: 03/04/24 HPI HPI Comments History of Present Illness Details 73-year-old female with PVD, hyperlipide alexys, hypertension, osteoarthritis, IFG, cataracts Status post appendectomy, laparoscopic cholecystectomy Health maintenance Mammogram ordered today Colonoscopy 2015 @ [facility] DEXA hasnt been done in years ordered today Declines flu, discussed covid, had 2 + 2 boosters [facility] Labs from 12/25/2023 show a BUN of 25, creatinine 0.83, normal GFR, fasting glucose of 110, normal cholesterol, positive microalbumin 50.6 Labs from 03/04/2024 show stable renal function, hemoglobin A1c 5.5%, normal LFTs Here today for routine follow up of chronic conditions. Was not able to get cataract surgery done as she was not able to get eye drops in; does not have help to admin these at home. BP log reviewed s/p reduction in lisinopril at last visit d/t hypotension, BPs much better very few 140-150 SBP otherwise in 120-130, DBP stable. Plan cont Lisin 2.5mg new rx sent reviewed IZA and vascular consult:Abnormal IZA: 12/2023 RLE: IZA 0.97, borderline normal. Elevated velocity in the distal popliteal artery suggesting moderate to severe stenosis. LEFT LEG: Mild peripheral arterial disease by IZA criteria. 02/2024 [facility] Consult concludes: In short patient has stable arterial disease. I do not believe that the popliteal artery stenosis is significant as I do have palpable pulses. I do believe that most of her pain may be more neurologic in nature. We did discuss these findings and she will follow up with us on an as- needed basis. She may benefit from a neurologic evaluation and or back spine evaluation. Thank you for allowing us to assist in her care. If there are any questions or concerns please do not hesitate to contact us. cont to have pain in calves when she is walking, does not occur every day; the longer the distances the worse the pain, she does not have resting leg pain, she does not have open wounds or ulcers. She does have HLD, HTN and decreased palpable PP in the setting of the leg pain sx that are suggestive of intermittent claudication. Walks daily to store, library, etc occasional feeling of skin crawling in her feet and other areas of body, fleeting she does not correlate this w/ the leg pain she is reporting. Her IZA is < .90 on one side only and borderline normal on the other ? if this is from collateral as she is reporting sx of claudication today >> discussed sending back to [facility] vs pain mgmt... would like me to reach out to [facility] for other recs >>>> 05/07/2024 at 1616 message sent to BEENA Barrios, Dr Melgoza saw this patient in consult 02/2024 I saw her this week and she cont to complain, See info below. I am wondering if Dr Melgoza would be kind enough to see her for a re-eval Incidental finding of microalbuminuria on previous labs. This urine was repeated today and shows improvement microalb repeat improved 29.5 PFSH Medical History Glenoid fracture of shoulder No pertinent past medical history Surgical History History of appendectomy History of laparoscopic cholecystectomy History of wisdom tooth extraction Social History Household Members: Other Housing: Apartment Are you a primary residential child care counselor to a significant other at home: No Do you presently have visiting nurse or other home services: No Alcohol intake: current Alcohol intake frequency: holidays/special occasions only Patient Tobacco Use Status: Never used Tobacco e-Cigarette/Vaping Use: Never Used Second Hand Smoke Exposure: No service: No Current occupational status: retired and other Current occupational exposures/hazards: No Sexual orientation: Unable to collect Gender identity: Unable to collect Cognitive needs: No Hearing needs: No Vision needs: Yes (glasses) Questionnaire Thrive Questionnaire Date Thrive assessed: 11/25/23 NAIN-7 AMB Questionnaire NAIN-7 Date NAIN - 7 assessed: 11/25/23 Source: Developed by Drs. Gibran Salinas, Berta Corcoran, Abdullahi Aragon and colleagues, with an educational edmund from [employer]. Physical exam (Primary Care) Vital Signs: Last Vital Signs Temp 97.7 F 05/04/24 09:49 Pulse 92 05/04/24 09:49 Resp 14 05/04/24 09:49 BP 138/72 05/04/24 10:32 Pulse Ox 98 05/04/24 09:49 Oxygen Delivery Method Room Air 05/04/24 09:49 BMI result Body Mass Index 29.9 Tobacco/Smoking Status: Tobacco use Status Tobacco use date assessed 11/25/23 05/04/24 09:56 Patient Tobacco Use Status Never used Tobacco 05/04/24 09:56 e-Cigarette/Vaping Use Never Used 05/04/24 09:56 Thrive Assessment: Date of Thrive Assessment Date Thrive assessed 11/25/23 05/04/24 09:56 Const Other: wake alert oriented nad MMM sclera & conjunctiva clear bilat LS dim BLL otherwise CTAB RRR BLE hairless, decreased PP bilat, feet warm to touch, nails thickened. Skin intact. Very trace edema bilat ankles R>L Anxious but pleasant and cooperative Assessment and Plan Assessment & Plan (1) Menopause: Code(s): Z78.0 - Asymptomatic menopausal state (2) HTN, goal below 130/80: Code(s): I10 - Essential (primary) hypertension (3) Hyperlipidemia: Comment: on statin and ASA, December 2023 labs show LDL at goal 76. Continue atorvastatin 20 mg daily Code(s): E78.5 - Hyperlipidemia, unspecified Qualifiers: Hyperlipidemia type: mixed hyperlipidemia Qualified Code(s): E78.2 - Mixed hyperlipidemia (4) Microalbuminuria: Comment: on ACEI. Encouraged hydration. Labs from December of 2023 show microalbumin 50.6, BUN 25, creatinine 0.83, GFR within normal limits. 04/2024 improved Code(s): R80.9 - Proteinuria, unspecified (5) Impaired fasting glucose: Comment: Fasting glucose December of 2023 is 110. Education provided today. A1c 5.5% 03/2024 Code(s): R73.01 - Impaired fasting glucose (6) Cataracts, bilateral: Comment: Active with Dr. martinez in [place] Code(s): H26.9 - Unspecified cataract Qualifiers: Age-related cataract type: nuclear Cataract type: age-related Qualified Code(s): H25.13 - Age-related nuclear cataract, bilateral (7) Popliteal artery stenosis, right: Comment: l IZA: 12/2023 RLE: IZA 0.97, borderline normal. Elevated velocity in the distal popliteal artery suggesting moderate to severe stenosis. LEFT LEG: Mild peripheral arterial disease by IZA criteria. Referred to Dr. Melgoza Code(s): I70.201 - Unspecified atherosclerosis of [place] arteries of extremities, right leg (8) PVD (peripheral vascular disease): Comment: on statin and ASA. Abnormal IZA: 12/2023 RLE: IZA 0.97, borderline normal. Elevated velocity in the distal popliteal artery suggesting moderate to severe stenosis. LEFT LEG: Mild peripheral arterial disease by IZA criteria. Referred to Dr Melgoza Code(s): I73.9 - Peripheral vascular disease, unspecified Orders: Orders MM screening mammo BI 05/04/24 Z12.31 - Encounter for screening mammogram for malignant neoplasm of breast Hemoglobin A1c 08/03/24 E78.2 - Mixed hyperlipidemia, I10 - Essential (primary) hypertension, R73.01 - Impaired fasting glucose, R80.9 - Proteinuria, unspecified XR DEXA axial skeleton 05/04/24 Z78.0 - Asymptomatic menopausal state Comprehensive [place]. Panel Fast 08/03/24 E78.2 - Mixed hyperlipidemia, I10 - Essential (primary) hypertension, R73.01 - Impaired fasting glucose, R80.9 - Proteinuria, unspecified Lipid Panel 08/03/24 E78.2 - Mixed hyperlipidemia, I10 - Essential (primary) hypertension, R73.01 - Impaired fasting glucose, R80.9 - Proteinuria, unspecified Medications: New lisinopril 2.5 mg PO DAILY 90 tabs 1RF Discontinued lisinopril Discontinued Reason: Doctor's Order 2.5 mg (1/2 x 5 mg) PO DAILY 90 tabs 0RF I10 - Essential (primary) hypertension Patient Instructions: Repeat fasting labs to be done 1 week before your next appointment which should be in August, sooner as needed. Coding Level of Care Code Est Pt Level 5 (11784) Complex EM visit Add On G2211 Diagnoses Menopause Z78.0 HTN, goal below 130/80 I10 Mixed hyperlipidemia E78.2 Hyperlipidemia type: mixed hyperlipidemia Microalbuminuria R80.9 Impaired fasting glucose R73.01 Age-related nuclear cataract of both eyes H25.13 Age-related cataract type: nuclear Cataract type: age-related Popliteal artery stenosis, right I70.201 PVD (peripheral vascular disease) I73.9
[2024-05-04 10:32] VITALS: BP 138/72
== END 2024-05-04 10:41 | disposition home or self-care (01) ==
PROVIDERS: PCP Nurse Practitioner Family; Visit Provider Nurse Practitioner Family
DX: I10 Essential (primary) hypertension (principal); Z78.0 Asymptomatic menopausal state; I73.9 Peripheral vascular disease, unspecified; E78.2 Mixed hyperlipidemia; R80.9 Proteinuria, unspecified; R73.01 Impaired fasting glucose; H25.13 Age-related nuclear cataract, bilateral
CPT/HCPCS: 99214; G2211

== ENCOUNTER 2024-05-04 10:55 | Outpatient (REF) | payer MEDICARE, SELFPAY ==
[2024-05-04 12:04] LABS: Microalbum/Creatinine Ratio Ur 29.5 ug/mg cr (<30)
== END 2024-05-04 10:56 | disposition home or self-care (01) ==
LOC: HO.LNP 10:55
PROVIDERS: Visit Provider Nurse Practitioner Family
DX: R80.9 Proteinuria, unspecified (principal); R73.01 Impaired fasting glucose
CPT/HCPCS: 82043; 82570

== ENCOUNTER 2024-06-03 13:16 | Outpatient (REF) | payer MEDICARE, SELFPAY ==
--- NOTE | ~2024-06-03 | MM_ITS ---
EXAMINATION: BONE DENSITOMETRY CLINICAL INDICATION: Asymptomatic menopausal state. COMPARISON: This is the patient's baseline examination. TECHNIQUE: Using a [employer] DXA System (software version: 13.1) manufactured by [employer], dual-energy x-ray absorptiometry was performed of the lumbar spine and left hip. The images are of good technical quality. Summary results are attached. FINDINGS: LEFT FEMUR, NECK: BMD 0.727 g/cm2, Z-score -0.5, T-score -2.2, osteopenia. LEFT FEMUR, TOTAL: BMD 0.827 g/cm2, Z-score 0.1, T-score -1.4, osteopenia. AP SPINE L2-L4 (excluding L1): The data of L1-L4 has been changed to exclude the L1 vertebral body, because scoliosis with degenerative sclerosis at this level may cause overestimation of lumbar spine density. BMD 1.121 g/cm2, Z-score 0.9, T-score -0.7, normal. IDENTIFIED RISK FACTORS: Menopause, left oophorectomy, history of fracture (adult), height loss, low calcium intake, parental hip fracture. HISTORY OF FRACTURE: Shoulder. MEDICATIONS: None listed. MM/XR DEXA axial skeleton IMPRESSION: 1. DIAGNOSIS: Osteopenia based on the lowest T-score value of -2.2 in the femoral neck applying World Health Organization criteria. 2. 10-YEAR FRACTURE RISK PREDICTION, FRAX: Major osteoporotic fracture (clinical spine, forearm, hip or shoulder) 34.4%. Hip fracture 18.0%. 3. Treatment Recommendations: NOF guidelines recommend consideration for treatment in postmenopausal women and men age 50 and older presenting with the following: -A hip or vertebral (clinical or morphometric) fracture. -T-score less than or equal to -2.5 at the femoral neck or spine after appropriate evaluation to exclude secondary causes. -Low bone mass at the hip or spine and a 10-year fracture probability by FRAX of greater than or equal to 3% for hip fracture or greater than or equal to 20% for major osteoporotic fracture based on the [place] adapted WHO algorithm. 4. Other Recommendations: All treatment decisions require clinical judgment and consideration of individual patient factors, including patient preferences, comorbidities, previous drug use, risk factors not captured in the FRAX model (e.g. frailty, falls, vitamin D deficiency, increased bone turnover, interval significant decline in bone density) and possible under or overestimation of fracture risk by FRAX. Additional medical evaluation for secondary cause of low bone mineral density may be appropriate. FUTURE SCAN RECOMMENDATION: People with diagnosed cases of osteoporosis or at high risk for fracture should have regular bone mineral density tests. For patients eligible for Medicare, routine testing is allowed once every 2 years. The testing frequency can be increased to one year for patients who have rapidly progressing disease, those who are receiving or discontinuing medical therapy to restore bone mass, or have additional risk factors.
--- NOTE | ~2024-06-03 | MM_ITS ---
EXAMINATION: MM SCREENING DIGITAL BREAST TOMOSYNTHESIS, BILATERAL CLINICAL INFORMATION: Screening. Asymptomatic. COMPARISON: Mammography: This study is compared with prior exams dating back to 2016. There are no interval mammograms. TECHNIQUE: Digital breast tomosynthesis is performed in both the craniocaudal and mediolateral oblique views along with computer-aided detection (CAD). Synthesized 2D images are generated from the tomosynthesis. FINDINGS: There are scattered areas of fibroglandular density (ACR BI-RADS breast composition Category b). There are no significant masses, abnormal calcifications, or other abnormalities. Few, benign calcifications are present in the left breast. MM/MM tomosynthesis screening BI IMPRESSION: No mammographic evidence of malignancy. ASSESSMENT: BI-RADS BI-RADS 2 - Benign Findings RECOMMENDATION: Routine annual mammography screening. 1 year F/U This examination should not preclude the clinical evaluation of a suspicious palpable abnormality. This patient's information was entered into a reminder system with a target due date for their next mammogram. Electronically signed by: Mayelin Hernandez MD 07/02/2024 12:25 PM EDT
== END 2024-06-03 13:17 | disposition home or self-care (01) ==
LOC: HO.MAMMO 13:16
PROVIDERS: PCP Nurse Practitioner Family; Visit Provider Nurse Practitioner Family
DX: Z12.31 Encounter for screening mammogram for malignant neoplasm of breast (principal); Z13.820 Encounter for screening for osteoporosis; Z78.0 Asymptomatic menopausal state
CPT/HCPCS: 77063; 77067; 77080

== ENCOUNTER → 2024-06-03 13:45 | Outpatient (BNV) | payer MEDICARE, SELFPAY | PROVIDERS: PCP Nurse Practitioner Family; Visit Provider Radiology Diagnostic Radiology | DX: Z12.31 Encounter for screening mammogram for malignant neoplasm of breast (principal) | CPT/HCPCS: 77063; 77067 ==

== ENCOUNTER 2024-08-10 15:56 | Outpatient (AMB) | payer MEDICARE, SELFPAY ==
--- NOTE | 2024-08-10 16:00 | A.OFFPC_ITS ---
Vital Signs 08/10/24 16:01 Height 5 ft Weight 154 lb 8 oz BMI 30.2 BP 134/70 Blood Pressure Location Rt brachial Position Sitting Respiration 15 Pulse 109 H Pulse Source Pulse Oximeter Pulse Oximetry (%) 100 Oxygen Delivery Method Room Air Intake Visit Reasons: worries with dark stool Intake Note: Patient complaining of dark stool since friday. Allergies bisacodyl [From PEG-Prep] Adverse Reaction (Mild, Verified 08/10/24 16:37) Vomiting polyethylene glycol 3350 [From PEG-Prep] Adverse Reaction (Mild, Verified 08/10/24 16:37) Vomiting potassium chloride [From PEG-Prep] Adverse Reaction (Mild, Verified 08/10/24 16:37) Vomiting sodium bicarbonate [From PEG-Prep] Adverse Reaction (Mild, Verified 08/10/24 16:37) Vomiting sodium chloride [From PEG-Prep] Adverse Reaction (Mild, Verified 08/10/24 16:37) Vomiting Medication List - Last Reconciled 08/10/24 by Iona Zamarripa, BRAKE PRESS OPERATOR- aspirin 325 mg PO DAILY atorvastatin 20 mg PO BEDTIME blood pressure monitor As directed lisinopril 2.5 mg PO DAILY sennosides (senna) 17.2 mg (2 x 8.6 mg) PO BEDTIME Tobacco use date assessed: 11/25/23 Dental Screening Dental Screen Date: 03/04/24 HPI HPI Comments History of Present Illness Details 73-year-old female with PVD, hyperlipide alexys, hypertension, osteoarthritis, IFG, cataracts Status post appendectomy, laparoscopic cholecystectomy Here today w/ c/o dark stools. Reports Chronic IBS, nausea, gassy all of the time Sx usually wax and wane; seem to more persistent and assoc w/ Bad breath coming from her gut, In the past, used Bismuth and generic prilosec with + effect took 6 Pepto Bismuth tabs, last time taken was on Friday. Friday had black stool x Friday as well. Stool did turn to brown since this time. However cont to have the chronic GI symptoms Last colon 07/2015 Is on ASA 325mg. Takes w/ food. Has never had GI upset in the past. Feels she is having a hard time digesting peas, carrots, sugar snap peas, raisins. Reports they are coming out whole. This is new. Started a few weeks ago. Denies vomiting Wt is stable based on trending Of note she cannot tolerate PEG or anything that fizzes as this cause GI upset. Can tolerate Mag of Citrate if prep needed. Exam: Awake alert NAD Scleras nonicteric MMM RRR Abd soft, normoactive bs x 4, nontender External hemorrhoid, negative FOB, normal GUY - offered and declined joint finisher Plan May be from the pepto, however, at this time, check labs Start Omeprazole AFTER stool sample and labs AVOID Pepto or bismuth products FU after results at office visit scheduled 08/19/24 Can consider need for imaging or GI referral based on the test results This note is constructed using voice recognition software. While every effort has been made to ensure accuracy in bi manager, still errors may have been included Sometimes, these errors may affect the content or meaning of the given sentence . Total time spent caring for the patient today was 45 minutes. This includes time spent before the visit reviewing the chart, time spent during the visit, and time spent after the visit on documentation PFSH Medical History Glenoid fracture of shoulder No pertinent past medical history Surgical History History of appendectomy History of laparoscopic cholecystectomy History of wisdom tooth extraction Social History Household Members: Other Caregiver staying overnight: No Housing: Apartment Are you a primary school childcare attendant to a significant other at home: No Do you presently have visiting nurse or other home services: No 75 years or older and lives alone: No Alcohol intake: current Alcohol intake frequency: holidays/special occasions only Patient Tobacco Use Status: Never used Tobacco e-Cigarette/Vaping Use: Never Used Second Hand Smoke Exposure: No service: No Current occupational status: retired and other Current occupational exposures/hazards: No Sexual orientation: Unable to collect Gender identity: Unable to collect Cognitive needs: No Hearing needs: No Vision needs: Yes (glasses) Questionnaire Thrive Questionnaire Date Thrive assessed: 11/25/23 NAIN-7 AMB Questionnaire NAIN-7 Date NAIN - 7 assessed: 11/25/23 Source: Developed by Berta Paz B.W. Nilo, Abdullahi Aragon and colleagues, with an educational edmund from [employer]. Physical exam (Primary Care) Vital Signs: Last Vital Signs Pulse 109 H 08/10/24 16:01 Resp 15 08/10/24 16:01 BP 134/70 08/10/24 16:01 Pulse Ox 100 08/10/24 16:01 Oxygen Delivery Method Room Air 08/10/24 16:01 BMI result Body Mass Index 30.2 Tobacco/Smoking Status: Tobacco use Status Tobacco use date assessed 11/25/23 08/10/24 16:02 Patient Tobacco Use Status Never used Tobacco 08/10/24 16:02 e-Cigarette/Vaping Use Never Used 08/10/24 16:02 Thrive Assessment: Date of Thrive Assessment Date Thrive assessed 11/25/23 08/10/24 16:02 Results AMB Fecal Occult Blood X1 2 AMB Fecal Occult Blood X1 Negative Last Edit by JAMA Kaur on 08/10/24 18:07 Coding Level of Care Code Est Pt Level 5 (30685) Complex EM visit Add On G2211 Diagnoses Black stool K92.1 Gastroesophageal reflux disease without esophagitis K21.9 Esophagitis presence: without esophagitis Assessment & Plan Assessment & Plan (1) Black stool: Code(s): K92.1 - Melena Category: Medical Plan: . (2) GERD (gastroesophageal reflux disease): Code(s): K21.9 - Gastro-esophageal reflux disease without esophagitis Category: Medical Qualifiers: Esophagitis presence: without esophagitis Qualified Code(s): K21.9 - Gastro-esophageal reflux disease without esophagitis Plan: . Plan . Orders: Orders H pylori Ag Stool Today K21.9 - Gastro-esophageal reflux disease without esophagitis, K92.1 - Melena Lipase Today K21.9 - Gastro-esophageal reflux disease without esophagitis, K92.1 - Melena Liver Panel Today K21.9 - Gastro-esophageal reflux disease without esophagitis, K92.1 - Melena Amylase Today K21.9 - Gastro-esophageal reflux disease without esophagitis, K92.1 - Melena Complete Blood Count no Diff Today K21.9 - Gastro-esophageal reflux disease without esophagitis, K92.1 - Melena AMB Stool Occult Bld Single Today K92.1 - Melena Medications: New omeprazole 20 mg PO DAILY 90 caps 0RF
[2024-08-10 16:01] VITALS: BP 134/70; PULSE 109; RESP 15; O2SAT 100; BMI 30.2
== END 2024-08-10 16:43 | disposition home or self-care (01) ==
LOC: HO.HMCFM 15:56
PROVIDERS: PCP Nurse Practitioner Family; Visit Provider Nurse Practitioner Family
DX: K92.1 Melena (principal); K21.9 Gastro-esophageal reflux disease without esophagitis

== ENCOUNTER → 2024-08-10 15:56 | Outpatient (BNVA) | payer MEDICARE, SELFPAY | PROVIDERS: PCP Nurse Practitioner Family; Visit Provider Nurse Practitioner Family | DX: K92.1 Melena (principal); K21.9 Gastro-esophageal reflux disease without esophagitis | CPT/HCPCS: 99212 ==

== ENCOUNTER 2024-08-11 12:52 | Outpatient (REF) | payer MEDICARE, SELFPAY ==
[2024-08-11 14:26] LABS: Hematocrit 36.3 % (37.0-47.0); Hemoglobin 12.3 g/dl (12.0-16.0); Mean Corpuscular HGB Conc 33.9 g/dl (31.0-35.0); Mean Corpuscular Volume 91.4 fL (80.0-98.0); Mean Platelet Volume 9.6 fL (9.4-12.3); Platelet Count 389 X10*3/uL (160-400); Red Blood Count 3.97 X10*6/uL (4.20-5.50); Red Cell Distribution Width 13.8 % (11.0-16.0); White Blood Count 7.2 X10*3/uL (4.8-10.8)
[2024-08-11 14:36] LABS: Estimated Average Glucose 108 mg/dL; Hemoglobin A1C 107.1734 umol/L; Hemoglobin A1c % 5.4 % (<6.0); Total Hemoglobin (HGBA1C) 3053.8638 umol/L
[2024-08-11 14:39] LABS: Alanine Aminotransferase 17 U/L (0-31); Albumin Level 3.9 g/dL (3.5-5.0); Alkaline Phosphatase 79 U/L (39-117); Amylase 81 U/L (28-100); Anion Gap 12 (12-20); Aspartate Amino Transferase 26 U/L (5-31); Bilirubin Direct 0.2 mg/dL (0.0-0.5); Bilirubin Total 0.4 mg/dL (0.0-1.0); Blood Urea Nitrogen 26 mg/dL (9-16); Calcium 9.7 mg/dL (8.4-10.2); Carbon Dioxide 27 mmol/L (22-29); Chloride 107 mmol/L (96-108); Cholesterol 165 mg/dL (<200); Estimated Glomerular Filt Rate > 60; Glucose Fasting 114 mg/dL (60-99); HDL Cholesterol 68 mg/dL (>40); LDL Cholesterol Calculated 75 mg/dL (<100); Lipase 69 U/L (8-78); Sodium 142 mmol/L (135-145); Total Protein 7.2 g/dL (6.5-8.0); Triglycerides 114 mg/dL (<150)
== END 2024-08-11 12:53 | disposition home or self-care (01) ==
LOC: HO.WFDLDS 12:52
PROVIDERS: Visit Provider Nurse Practitioner Family
DX: R73.01 Impaired fasting glucose (principal); R80.9 Proteinuria, unspecified; E78.2 Mixed hyperlipidemia; I10 Essential (primary) hypertension; K92.1 Melena; K21.9 Gastro-esophageal reflux disease without esophagitis
CPT/HCPCS: 36415; 80053; 80061; 80076; 82150; 82248; 83036; 83690; 85027